=== PATIENT | male | born 1990 | race Caucasian/White ===

== ENCOUNTER → 2017-06-23 | Outpatient (CLI) | payer MEDICAID ==
[2015-12-19 22:20] VITALS: BP 115/57
--- NOTE | 2017-06-23 12:38 | VAS ---
HISTORY: Dizziness Study: Carotid sonogram Comparison: None Technique: Multiple romero scale and color flow Doppler images of the right and left carotid arterial s ystem were obtained. The vertebral arterial system was evaluated as well. Examination was somewhat limited by the patient's body habitus. Findings: Normal color flow Doppler is seen throughout the right and left carotid arterial system. No hemodyna mically significant stenosis is seen based on velocity criteria. The right and left vertebral arteri es demonstrate antegrade flow. IMPRESSION: 1. No hemodynamically significant stenosis. Reported By:
== END ==
LOC: RAD 10:36
PROVIDERS: ATTEND Internal Medicine Cardiovascular Disease
DX: R42 Dizziness and giddiness (principal)
CPT/HCPCS: 93880

== ENCOUNTER 2017-08-10 21:49 | Emergency (ER) | payer MEDICAID ==
[2017-08-10 22:04] VITALS: BP 149/87; BMI 39.1
[2017-08-10] MEDS ORDERED: TORADOL 60 MG VIAL IM ONE (22:25)
--- NOTE | 2017-08-10 22:25 | DR.GENAD ---
HPI - PCP Primary Care Physician: tigre ng - Complaint/Symptoms Chief Complaint:: head hurting on right side. feels swollen. just went to hurting about an hour ago - Source History Provided: Patient - Mode of Arrival Mode of Arrival: Ambulatory - Timing Onset of Chief Complaint: 08/10/17 PMH - PMH Past Medical History: Yes Past Medical History: GERD, Gout, Hypertension, Sleep Apnea Past Surgical History: Yes Surgical History: CABG/Valve Surgery Past Surgical History Comment: aorta valve replacement - Family History History of Family Medical Conditions: Yes Family Medical History: Diabetes Mellitus, Cancer, [place], Coronary Artery Disease, Heart Failure, Sudden Cardiac , Hypertension - Social History Does patient currently use any type of tobacco product: No Have you used tobacco products in the last 12 months: No Type of Tobacco Use: None Does any household member use tobacco: Yes Alcohol Use: None Do you use any recreational Drugs:: No Lives With: Spouse Lives Where: Home - infectious screening In the last 2 months have you had wt loss of >10#?: NO Have you had fever, night sweats or hemotysis?: No Have you traveled outside the country in the last 6 months?: No Isolation: Standard ROS - Review of Systems Eyes: No Symptoms Reported ENTM: No Symptoms Reported Respiratoy: No Symptoms Reported Cardiovascular: No Symptoms Reported Gastrointestinal/Abdominal: No Symptoms Reported Genitourinary: No Symptoms Reported Neurological: No Symptoms Reported Musculoskeletal: No Symptoms Reported Integumentary: No Symptoms Reported Hematologic/Lymphatic: No Symptoms Reported Endocrine: No Symptoms Reported Psychiatric: No Symptoms Reported All Other Systems: Reviewed and Negative PE - Vital Signs Vitals: Temperature 98.3 F Pulse Rate 85 Respiratory Rate 24 Blood Pressure [Left Arm] 115/57 Blood Pressure [Right Arm] 102/60 Blood Pressure 149/87 O2 Sat by Pulse Oximetry 97 - General General Appearance: Alert, In No Apparent Distress - Head Head Exam: Normal Inspection, Atraumatic - Eyes Eye exam: Normal Appearance, PERRL, EOMI - ENT ENT Exam: Normal Exam External Ear Exam: Normal External Inspection TM/Canal Exam: Bilateral Normal Nose Exam: Normal Nose Exam Mouth Exam: Normal Inspection Throat Exam: Normal Inspection - Neck Neck Exam: Normal Inspection - Chest Chest Inspection: Normal Inspection - Respiratory Respiratory Exam: Normal Lung Sounds Bilat Respiratory Exam: Bilateral Clear to Auscultation - Cardiovascular Cardiovascular Exam: Regular Rate - Abdominal Exam Abdominal Exam: Normal Inspection Abdominal Tenderness: negative: RUQ, RLQ, LUQ, LLQ, Epigastrium, Suprapubic, Diffuse, Mild, Moderate, Severe, Other - Extremities Extremities Exam: Normal Inspection, Full ROM - Back Back Exam: Normal Inspection - Neurologic Neurological Exam: Alert, Oriented X3, CN II-XII Intact - Psychiatric Psychiatric Exam: Normal Affect ROR - Labs Reviewed Result Diagrams: 08/10/17 22:32 08/10/17 22:32 Laboratory: WBC 10.7 X10^3/uL (3.6-10.0) H 08/10/17 22:32 RBC 5.25 X10^6/uL (4.7-6.0) 08/10/17 22:32 Hgb 15.3 g/dL (13.5-18.0) 08/10/17 22:32 Hct 44.5 % (42.0-54.0) 08/10/17 22:32 MCV 84.8 fL (80.0-100.0) 08/10/17 22:32 MCH 29.2 pg (27.0-34.0) 08/10/17 22:32 MCHC 34.5 g/dL (33.0-35.0) 08/10/17 22:32 RDW 14.8 % (11.6-16.5) 08/10/17 22:32 Plt Count 189 X10^3/uL (150.0-450.0) 08/10/17 22:32 MPV 8.5 fL (7.4-11.0) 08/10/17 22:32 Neut % 69.4 % (42.0-75.0) 08/10/17 22:32 Lymph % 24.4 % (21.0-51.0) 08/10/17 22:32 Davis % 2.7 % (0.0-13.0) 08/10/17 22:32 Eos % 2.3 % (0.9-2.9) 08/10/17 22:32 Baso % 1.2 % (0.2-1.0) H 08/10/17 22:32 Neut # 7.4 x10^3/uL (2.2-4.8) H 08/10/17 22:32 Lymph # 2.6 X10^3/uL (1.3-2.9) 08/10/17 22:32 Davis # 0.3 x10^3/uL (0.3-0.8) 08/10/17 22:32 Eos # 0.2 x10^3/uL (0.0-0.2) 08/10/17 22:32 Baso # 0.1 X10^3/uL (0.0-0.1) 08/10/17 22:32 Absolute Nucleated RBC 0.0 /100WBC 08/10/17 22:32 Sodium 138 mmol/L (136-145) 08/10/17 22:32 Corrected Sodium 139 mmol/L (136-145) 08/10/17 22:32 Potassium 3.7 mmol/L (3.5-5.1) 08/10/17 22:32 Chloride 103 mmol/L (98-107) 08/10/17 22:32 Carbon Dioxide 28.8 mmol/L (21-32) 08/10/17 22:32 BUN 20 mg/dL (7-18) H 08/10/17 22:32 Creatinine 1.35 mg/dL (0.70-1.30) H 08/10/17 22:32 Est GFR (MDRD) Af Amer > 60 (>60) 08/10/17 22:32 Est GFR (MDRD) Non-Af > 60 (>60) 08/10/17 22:32 Glucose 155 mg/dL (65-99) H 08/10/17 22:32 Calcium 9.1 mg/dL (8.5-10.1) 08/10/17 22:32 C-Reactive Protein 20.80 mg/L (0-3.0) H 08/10/17 22:32 - XRAY XRAY Interpreted by: Radiologist (CT Sinus: negative) - Diagnosis Discharge Problem: Headache Qualifiers: Headache type: unspecified Headache chronicity pattern: acute headache Intractability: not intractable Qualified Code(s): R51 - Headache - Discharge Plan Condition: Stable - Follow ups/Referrals Follow ups/Referrals: ОЛЕГ NG [Primary Care Provider] - 3 days - Instructions
[2017-08-10] MEDS ORDERED: TORADOL 60 MG VIAL ONE (22:28)
[2017-08-10 22:48] LABS: BASOPHILS # (AUTO) 0.1 X10^3/uL (0.0-0.1); BASOPHILS % (AUTO) 1.2 % (0.2-1.0); EOSINOPHILS # (AUTO) 0.2 x10^3/uL (0.0-0.2); EOSINOPHILS % (AUTO) 2.3 % (0.9-2.9); HEMATOCRIT 44.5 % (42.0-54.0); HEMOGLOBIN 15.3 g/dL (13.5-18.0); LYMPHOCYTES # (AUTO) 2.6 X10^3/uL (1.3-2.9); LYMPHOCYTES % (AUTO) 24.4 % (21.0-51.0); MEAN CORPUSCULAR HEMOGLOBIN 29.2 pg (27.0-34.0); MEAN CORPUSCULAR HGB CONC 34.5 g/dL (33.0-35.0); MEAN CORPUSCULAR VOLUME 84.8 fL (80.0-100.0); MEAN PLATELET VOLUME 8.5 fL (7.4-11.0); MONOCYTES # (AUTO) 0.3 x10^3/uL (0.3-0.8); MONOCYTES % (AUTO) 2.7 % (0.0-13.0); NEUTROPHILS # (AUTO) 7.4 x10^3/uL (2.2-4.8); NEUTROPHILS % (AUTO) 69.4 % (42.0-75.0); PLATELET COUNT 189 X10^3/uL (150.0-450.0); RED BLOOD COUNT 5.25 X10^6/uL (4.7-6.0); RED CELL DISTRIBUTION WIDTH 14.8 % (11.6-16.5); WHITE BLOOD COUNT 10.7 X10^3/uL (3.6-10.0)
[2017-08-10 22:52] LABS: BLOOD UREA NITROGEN 20 mg/dL (7-18); CALCIUM 9.1 mg/dL (8.5-10.1); CARBON DIOXIDE 28.8 mmol/L (21-32); CHLORIDE 103 mmol/L (98-107); COR NA(FOR HYPERGLY) 139 mmol/L (136-145); CREATININE 1.35 mg/dL (0.70-1.30); SODIUM 138 mmol/L (136-145); eGFR BLACK RACES > 60 (>60); eGFR NON BLACK RACES > 60 (>60)
--- NOTE | 2017-08-11 00:18 | CT ---
EXAM: CT SINUS WITHOUT CONTRAST INDICATION: Headache COMPARISION: No priors for comparison TECHNIQUE: Axial CT of the sinus and face were obtained without intravenous contrast. Sagittal and coronal recon structions were obtained using the axial data. FINDINGS: There is no evidence of a fracture or destructive intraosseous lesion. The orbits and intraorbital so ft tissues are normal and symmetric. The facial soft tissues are normal. There is no evidence of a fo reign body. The paranasal sinuses are clear. IMPRESSION: No acute abnormality Reported By:
== END 2017-08-11 00:50 | disposition home or self-care (01) ==
LOC: ER 21:49
DX: R51 Headache (principal)
CPT/HCPCS: 36415; 70486; 80048; 85025; 86140; 96372; 99283; J1885

== ENCOUNTER 2018-02-19 17:54 | Emergency (ER) | payer MEDICAID ==
[2018-02-19 18:01] VITALS: BP 126/89; BMI 47.6
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
--- NOTE | 2018-02-19 18:40 | RAD ---
HISTORY: Left foot pain. Study: Left foot three views Comparison: None. Findings: No acute cortical disruption or dislocation is identified. No significant soft tissue swelling or in jury is seen. The visualized portions of the talus and calcaneus are unremarkable. IMPRESSION: 1. Negative exam. Reported By:
[2018-02-19] MEDS ORDERED: INDOCIN CAP 25 MG PO ONE ×2 (19:07→19:09)
== END 2018-02-19 19:15 | disposition home or self-care (01) ==
LOC: ER 17:58
DX: M19.90 Unspecified osteoarthritis, unspecified site (principal); M10.9 Gout, unspecified
CPT/HCPCS: 36415; 73630; 84550; 99282; 99283